=== PATIENT | female | born 1960 | race Caucasian/White ===

== ENCOUNTER 2022-03-16 12:42 | Day surgery (SDC) | payer BC ==
[2022-03-15 11:18] VITALS: BMI 26.4
[2022-03-16] MEDS ORDERED: Sodium Bicarbonate 2.5 MEQ/5 ML VIAL ONE (13:32)
[2022-03-16] MEDS ORDERED: Lidocaine 1% PF 5 ML VIAL ONE (13:32)
[2022-03-16 14:30] VITALS: BP 137/81
[2022-03-16 15:49] LABS: RBC Count-Automated (BF) 177113 /cu.mm; WBC/Nucleated-Auto (BF) 902 /cu.mm
[2022-03-16 15:59] LABS: BF Color Red; Clarity Cloudy/Turbid (Clear); Tube # EDTA
[2022-03-16 16:06] LABS: BF Segmented Neutrophils 32 %; Cell Count Non Hematic 19 %; Eosinophils 3 %; Lymphocytes 46 %
== END 2022-03-16 14:15 | disposition home or self-care (01) ==
LOC: ULT 12:42
PROVIDERS: ATTEND Family Medicine
PROC: 0H97XZZ Drainage of Abdomen Skin, External Approach (ICD-10-PCS; principal; 2022-03-16)
DX: L76.34 Postprocedural seroma of skin and subcutaneous tissue following other procedure (principal); I10 Essential (primary) hypertension; M79.7 Fibromyalgia; Z79.899 Other long term (current) drug therapy
CPT/HCPCS: 76942; 85060; 87070; 87205; 89051

== ENCOUNTER 2022-08-22 14:21 | Outpatient (CLI) | payer BC | END 2022-08-22 14:22 | disposition home or self-care (01) | LOC: BICMAMMO 14:21 | PROVIDERS: ATTEND Orthopaedic Surgery | DX: M81.0 Age-related osteoporosis without current pathological fracture (principal) | CPT/HCPCS: 77080 ==

== ENCOUNTER → 2023-05-07 | Day surgery (SDC) | payer BC ==
[~2023-05-07] MED LIST: Lidocaine 1% PF 5 ML VIAL ONE; Sodium Bicarbonate 2.5 MEQ/5 ML VIAL ONE
== END ==
LOC: ULT 12:45
PROVIDERS: ATTEND Family Medicine
DX: K91.872 Postprocedural seroma of a digestive system organ or structure following a digestive system procedure (principal); L76.33 Postprocedural seroma of skin and subcutaneous tissue following a dermatologic procedure
CPT/HCPCS: 76999